=== PATIENT | female | born 1995 ===

== ENCOUNTER 2018-10-16 03:26 | Emergency (ER) | payer OTHER ==
[~2018-10-16] VITALS: Ht 162.6 cm; Wt 47.2 kg
[~2018-10-16 03:26] MED LIST: ABILIFY2 MG PO; CEFUROXIME250 MG PO; CLONAZEPAM0.5 MG PO; PROZAC40 MG PO; URIN D.S. TABLE1 TAB PO
== END 2018-10-16 16:28 | disposition home or self-care (01) ==
LOC: ER 03:26
DX: N83.291 Other ovarian cyst, right side (principal); R10.31 Right lower quadrant pain